=== PATIENT | male | born 1985 | race Caucasian/White ===

== ENCOUNTER 2023-09-18 00:25 | Emergency (ER) | payer SELFPAY ==
[~2023-09-18] VITALS: Ht 180.3 cm; Wt 100.0 kg
[2023-09-18 00:32] VITALS: BP 111/75; PULSE 79; RESP 14; TEMP 97.6; O2SAT 99
[2023-09-18] MEDS ORDERED: ONDANSETRON 4MG ODT PO ONE (01:30)
[2023-09-18] MEDS ORDERED: ONDA4TAB50 MT (04:11)
== END 2023-09-18 05:03 | disposition home or self-care (01) ==
LOC: ER 00:25
DX: R11.2 Nausea with vomiting, unspecified (principal); F10.99 Alcohol use, unspecified with unspecified alcohol-induced disorder
CPT/HCPCS: 99283